=== PATIENT | female | born 1995 | race Caucasian/White ===

== ENCOUNTER 2019-02-10 11:25 | Emergency (ER) | payer MEDICARE, OTHER ==
--- NOTE | 2019-02-10 14:21 | US ---
EXAMINATION TYPE: Transabdominal DATE OF EXAM: 02/10/2019 1:39 PM COMPARISON: NONE CLINICAL HISTORY: pain. cramping with EXAM PERFORMED: Transabdominal (TA) EXAM MEASUREMENTS: GESTATIONAL AGE / DATING Physician Established: Not yet established Dates by LMP: LMP unknown Dates by First Scan: No previous this is first scan Dates by Current Scan for: No heart tones (10 weeks/1 days) MATERNAL ANATOMY Uterus: 12.4 x 6.5 x 8.3 cm Right Ovary: 2.6 x 2.0 x 3.0 cm Left Ovary: 2.3 x 1.9 x 1.9 cm Post CDS / Adnexa: wnl Presence of free fluid: none GESTATION / SURVEY CRL: 3.2 cm (10 weeks/1 days) Yolk Sac (normal less than 6mm): 0.3 cm Heart Rate: not detected IUP: Demise Date of LMP: unknown Beta HcG (if available): not available demise. IMPRESSION: Sonographic findings are diagnostic of demise in evaluation with M mode and color Doppler.
--- NOTE | 2019-02-10 14:27 | ED ---
Abdominal Pain HPI <Yariel Alva - Last Filed: 02/10/19 15:50> - General Source: patient, RN notes reviewed, old records reviewed Mode of arrival: ambulatory Limitations: no limitations <Chelle Mccormick - Last Filed: 02/10/19 16:01> - General Chief Complaint: Abdominal Pain Stated Complaint: approx 10wks preg, cramping Time Seen by Provider: 02/10/19 13:23 - History of Present Illness Initial Comments: Patient is a 23-year-old female who presents emergency department today with right-sided abdominal pain and cramping. She states she's also had some left- sided upper abdominal pain. She reports that her symptoms started over the past few days. Patient states she has not seen an [facility]. Patient states that she believes she is approximately 10 weeks . She's attempted to follow-up with multiple [facility]'s but has been answering calls accepting her insurance. This is patient's first .Has history of thyroid disorder. (Chelle Mccormick) - Related Data Home Medications Medication Instructions Recorded Confirmed Levothyroxine Sodium [Synthroid] 88 mcg PO DAILY 08/16/15 02/10/19 Allergies Allergy/AdvReac Type Severity Reaction Status Date / Time latex Allergy Unknown Verified 02/10/19 13:33 Review of Systems ROS Other: All systems not noted in ROS Statement are negative. <Yariel Alva - Last Filed: 02/10/19 15:50> ROS Other: All systems not noted in ROS Statement are negative. <Chelle Mccormick - Last Filed: 02/10/19 16:01> ROS Statement: Those systems with pertinent positive or pertinent negative responses have been documented in the HPI. Past Medical History Past Medical History: Thyroid Disorder History of Any Multi-Drug Resistant Organisms: MRSA Date of last positivie culture/infection: 2005 MDRO Source:: LEG Past Surgical History: No Surgical Hx Reported Past Psychological History: ADD/ADHD, Depression Smoking Status: Current every day smoker Past Alcohol Use History: Occasional Past Drug Use History: Methamphetamine <Chelle Mccormick - Last Filed: 02/10/19 16:01> General Exam Limitations: no limitations General appearance: alert, in no apparent distress Head exam: Present: atraumatic, normocephalic, normal inspection Eye exam: Present: normal appearance, PERRL, EOMI. Absent: scleral icterus, conjunctival injection, periorbital swelling ENT exam: Present: normal exam, mucous membranes moist Neck exam: Present: normal inspection. Absent: tenderness, meningismus, lymphadenopathy Respiratory exam: Present: normal lung sounds bilaterally. Absent: respiratory distress, wheezes, rales, rhonchi, stridor Cardiovascular Exam: Present: regular rate, normal rhythm, normal heart sounds. Absent: systolic murmur, diastolic murmur, rubs, gallop, clicks GI/Abdominal exam: Present: soft, tenderness (Right lower quadrant pain), normal bowel sounds. Absent: distended, guarding, rebound, rigid Extremities exam: Present: normal inspection, full ROM, normal capillary refill. Absent: tenderness, pedal edema, joint swelling, calf tenderness Back exam: Present: normal inspection Neurological exam: Present: alert, oriented X3, CN II-XII intact Psychiatric exam: Present: normal affect, normal mood Skin exam: Present: warm, dry, intact, normal color. Absent: rash <Chelle Mccormick - Last Filed: 02/10/19 16:01> - General Exam Comments Initial Comments: This is a 23-year-old female. Alert and oriented 3. Patient appears in no acute distress. (Chelle Mccormick) Course <Yariel Alva - Last Filed: 02/10/19 15:50> Vital Signs 02/10/19 02/10/19 11:28 15:00 Temperature 98.5 F 98.6 F Pulse Rate 90 79 Respiratory 18 16 Rate Blood Pressure 116/68 100/84 O2 Sat by Pulse 99 100 Oximetry - Reevaluation(s) Reevaluation #1: 02/10/19 15:50 Patient reevaluated by myself, Dr. Alva. Patient resting comfortably in bed. Abdomen soft and nontender, including pelvis region. Patient is aware of result s. Case was discussed with Dr. Sales, covering for hospital call, who is okay with discharge and will follow up with patient. Patient is updated. (Yariel Alva) Medical Decision Making - Lab Data Result diagrams: 02/10/19 14:40 02/10/19 14:40 <Yariel Alva - Last Filed: 02/10/19 15:50> - Lab Data Result diagrams: 02/10/19 14:40 02/10/19 14:40 - Radiology Data Radiology results: report reviewed <AnnyChelle - Last Filed: 02/10/19 16:01> - Medical Decision Making Patient is a 23-year-old female presents emergency room today with right-sided abdominal pain cramping. She wishes 10 weeks . Ultrasound shows evidence of intrauterine measuring 10 weeks but no heart tones. Concern for demise. Patient is a 23-year-old female just returned today with complaints of lower abdominal pain and . Patient states is approximately 10 weeks . . At this time patient's ultrasound was completed and shows a IUP measuring 10 weeks with no heart tones. Concern for demise. Pelvic exam was completed. No bleeding noted. She had no adnexal tenderness. Patient's AB- blood type. Patient was given IM RhoGAM. Dr. Alva discussed the case with Dr. Armando recommends following up with them out patiently. We'll repeat hCG levels. I discussed strict return parameters with Patient. (Chelle Mccormick) - Lab Data Lab Results 02/10/19 02/10/19 02/10/19 Range/Units 14:40 14:40 14:40 WBC 14.3 H (3.8-10.6) k/uL RBC 4.05 (3.80-5.40) m/uL Hgb 13.8 (11.4-16.0) gm/dL Hct 41.5 (34.0-46.0) % MCV 102.3 H (80.0-100.0) fL MCH 34.1 (25.0-35.0) pg MCHC 33.3 (31.0-37.0) g/dL RDW 13.5 (11.5-15.5) % Plt Count 267 (150-450) k/uL Neutrophils % 70 % Lymphocytes % 22 % Monocytes % 4 % Eosinophils % 3 % Basophils % 1 % Neutrophils # 10.0 H (1.3-7.7) k/uL Lymphocytes # 3.1 (1.0-4.8) k/uL Monocytes # 0.6 (0-1.0) k/uL Eosinophils # 0.4 (0-0.7) k/uL Basophils # 0.1 (0-0.2) k/uL Macrocytosis Slight PT (9.0-12.0) sec INR (<1.2) APTT (22.0-30.0) sec Sodium 138 (137-145) mmol/L Potassium 4.0 (3.5-5.1) mmol/L Chloride 105 (98-107) mmol/L Carbon Dioxide 24 (22-30) mmol/L Anion Gap 9 mmol/L BUN 11 (7-17) mg/dL Creatinine 0.41 L (0.52-1.04) mg/dL Est GFR (CKD-EPI)AfAm >90 (>60 ml/min/1.73 sqM) Est GFR (CKD-EPI)NonAf >90 (>60 ml/min/1.73 sqM) Glucose 71 L (74-99) mg/dL Calcium 9.1 (8.4-10.2) mg/dL Total Bilirubin 0.4 (0.2-1.3) mg/dL AST 27 (14-36) U/L ALT 15 (9-52) U/L Alkaline Phosphatase 40 (38-126) U/L Total Protein 7.2 (6.3-8.2) g/dL Albumin 4.2 (3.5-5.0) g/dL Urine Color Urine Appearance (Clear) Urine pH (5.0-8.0) Ur Specific Nixon (1.001-1.035) Urine Protein (Negative) Urine Glucose (UA) (Negative) Urine Ketones (Negative) Urine Blood (Negative) Urine Nitrite (Negative) Urine Bilirubin (Negative) Urine Urobilinogen (<2.0) mg/dL Ur Leukocyte Esterase (Negative) Ur Squamous Epith Cells (0-4) /hpf Urine Bacteria (None) /hpf Urine Mucus (None) /hpf Urine HCG, Qual (Not Detectd) Blood Type AB Negative Blood Type Recheck CABO Indicated 02/10/19 02/10/19 02/10/19 Range/Units 14:40 14:40 14:40 WBC (3.8-10.6) k/uL RBC (3.80-5.40) m/uL Hgb (11.4-16.0) gm/dL Hct (34.0-46.0) % MCV (80.0-100.0) fL MCH (25.0-35.0) pg MCHC (31.0-37.0) g/dL RDW (11.5-15.5) % Plt Count (150-450) k/uL Neutrophils % % Lymphocytes % % Monocytes % % Eosinophils % % Basophils % % Neutrophils # (1.3-7.7) k/uL Lymphocytes # (1.0-4.8) k/uL Monocytes # (0-1.0) k/uL Eosinophils # (0-0.7) k/uL Basophils # (0-0.2) k/uL Macrocytosis PT 12.2 H (9.0-12.0) sec INR 1.2 H (<1.2) APTT 24.7 (22.0-30.0) sec Sodium (137-145) mmol/L Potassium (3.5-5.1) mmol/L Chloride (98-107) mmol/L Carbon Dioxide (22-30) mmol/L Anion Gap mmol/L BUN (7-17) mg/dL Creatinine (0.52-1.04) mg/dL Est GFR (CKD-EPI)AfAm (>60 ml/min/1.73 sqM) Est GFR (CKD-EPI)NonAf (>60 ml/min/1.73 sqM) Glucose (74-99) mg/dL Calcium (8.4-10.2) mg/dL Total Bilirubin (0.2-1.3) mg/dL AST (14-36) U/L ALT (9-52) U/L Alkaline Phosphatase (38-126) U/L Total Protein (6.3-8.2) g/dL Albumin (3.5-5.0) g/dL Urine Color Yellow Urine Appearance Cloudy H (Clear) Urine pH 6.5 (5.0-8.0) Ur Specific Nixon 1.027 (1.001-1.035) Urine Protein Trace H (Negative) Urine Glucose (UA) Negative (Negative) Urine Ketones Negative (Negative) Urine Blood Negative (Negative) Urine Nitrite Negative (Negative) Urine Bilirubin Negative (Negative) Urine Urobilinogen <2.0 (<2.0) mg/dL Ur Leukocyte Esterase Negative (Negative) Ur Squamous Epith Cells 23 H (0-4) /hpf Urine Bacteria Occasional H (None) /hpf Urine Mucus Many H (None) /hpf Urine HCG, Qual Detected (Not Detectd) Blood Type Blood Type Recheck - Radiology Data Ultrasound shows evidence of demise and evaluation with a bloating color Doppler. Ultrasound shows no heart tones but measuring 10 week and 1 day. (Chelle Mccormick) Disposition <Yariel Alva - Last Filed: 02/10/19 15:50> Is patient prescribed a controlled substance at d/c from ED?: No Time of Disposition: 16:01 <Chelle Mccormick - Last Filed: 02/10/19 16:01> Clinical Impression: demise, 10 weeks gestation of Disposition: HOME SELF-CARE Condition: Good Instructions (If sedation given, give patient instructions): Miscarriage (ED) Additional Instructions: Patient has have prompt follow-up with Dr. Armando or Dr. Smalls within the next 1-2 days. Patient should return to the emergency department if any alarming signs or symptoms occur. Referrals: Oswaldo Liu DO [Primary Care Provider] - 1-2 days
[2019-02-10 14:56] LABS: Basophils # (A) 0.1 k/uL (0-0.2); Basophils % (A) 1 %; Eosinophils # (A) 0.4 k/uL (0-0.7); Eosinophils % (A) 3 %; HCT 41.5 % (34.0-46.0); HGB 13.8 gm/dL (11.4-16.0); Lymphocytes # (A) 3.1 k/uL (1.0-4.8); Lymphocytes % (A) 22 %; MCH 34.1 pg (25.0-35.0); MCHC 33.3 g/dL (31.0-37.0); MCV 102.3 fL (80.0-100.0); Macrocytosis Slight; Mean Platelet Volume 7.5; Monocytes # (A) 0.6 k/uL (0-1.0); Monocytes % (A) 4 %; Neutrophils % (A) 70 %; Platelet Count 267 k/uL (150-450); RBC 4.05 m/uL (3.80-5.40); RDW 13.5 % (11.5-15.5); WBC 14.3 k/uL (3.8-10.6)
[2019-02-10 15:03] LABS: ALT 15 U/L (9-52); AST 27 U/L (14-36); Albumin 4.2 g/dL (3.5-5.0); Alkaline Phosphatase 40 U/L (38-126); Anion Gap 9 mmol/L; Blood Urea Nitrogen 11 mg/dL (7-17); Calcium 9.1 mg/dL (8.4-10.2); Carbon Dioxide 24 mmol/L (22-30); Chloride 105 mmol/L (98-107); Glucose 71 mg/dL (74-99); Sodium 138 mmol/L (137-145); Total Bilirubin 0.4 mg/dL (0.2-1.3); Total Protein 7.2 g/dL (6.3-8.2)
[2019-02-10 15:11] VITALS: TEMP 98.6
[2019-02-10] MEDS ORDERED: Rhogam IMMUNE GLOBULIN 1,500 UNIT/1 ML IM ONE (15:29)
[2019-02-10 15:34] LABS: INR 1.2 (<1.2); Partial Thromboplastin Time 24.7 sec (22.0-30.0); Prothrombin Time 12.2 sec (9.0-12.0)
[2019-02-10 15:41] LABS: Appearance,Urine Cloudy (Clear); Bacteria,Urine Occasional /hpf; Bilirubin,Urine Negative (Negative); Blood,Urine Negative (Negative); Color,Urine Yellow; Glucose,Urine (UA) Negative (Negative); Ketones,Urine Negative (Negative); Leukocyte Esterase,Urine Negative (Negative); Mucus,Urine Many /hpf; Nitrite,Urine Negative (Negative); PH, Urine 6.5 (5.0-8.0); Protein,Urine Trace (Negative); Specific Gravity,Urine 1.027 (1.001-1.035); Squamous Epithelial Cell,Urine 23 /hpf (0-4); Urobilinogen,Urine <2.0 mg/dL (<2.0)
[2019-02-10 17:32] VITALS: BP 98/67; PULSE 72; RESP 18
== END 2019-02-10 17:40 | disposition home or self-care (01) ==
LOC: EC 11:25
DX: O02.1 Missed abortion (principal); O99.281 Endocrine, nutritional and metabolic diseases complicating pregnancy, first trimester; E07.9 Disorder of thyroid, unspecified; O99.331 Smoking (tobacco) complicating pregnancy, first trimester; F17.200 Nicotine dependence, unspecified, uncomplicated; Z79.890 Hormone replacement therapy; Z91.040 Latex allergy status; Z86.14 Personal history of Methicillin resistant Staphylococcus aureus infection; Z3A.10 10 weeks gestation of pregnancy
CPT/HCPCS: 36415; 86900; 86901; 80053; 85025; 85610; 85730; 86850; 81001; 81025; 84702; 87808; 87070; 87086; 87205; 76801; 99284; 96372; J2791

== ENCOUNTER → 2019-02-14 | Day surgery (SDC) | payer MEDICARE ==
[2019-02-13 13:11] VITALS: BMI 21.4
--- NOTE | 2019-02-13 16:23 | P.HPOB ---
History of Present Illness H&P Date: 02/13/19 Chief Complaint: missed 23 year old presents with 10 week demise for suction D&C. She had an US earlier this week confirming. She has AB neg blood type but did get Rhogam in the ER this week. Review of Systems All systems: negative Constitutional: Denies chills, Denies fever Eyes: denies blurred vision, denies pain Ears, nose, mouth and throat: Denies headache, Denies sore throat Cardiovascular: Denies chest pain, Denies shortness of breath Respiratory: Denies cough Gastrointestinal: Denies abdominal pain, Denies diarrhea, Denies nausea, Denies vomiting Genitourinary: Denies dysuria, Denies hematuria Musculoskeletal: Denies myalgias Integumentary: Denies pruritus, Denies rash Neurological: Denies numbness, Denies weakness Psychiatric: Denies anxiety, Denies depression Endocrine: Denies fatigue, Denies weight change Past Medical History Past Medical History: Asthma, Eye Disorder, Musculoskeletal Disorder (Radu hereditary osteodystrophy), Thyroid Disorder Additional Past Medical History / Comment(s): LEGALLY BLIND LT EYE. BACK PROB. MISSED AB CURRENTLY. IRREG MENSES. History of Any Multi-Drug Resistant Organisms: MRSA Date of last positivie culture/infection: 2005 MDRO Source:: LEG Past Surgical History: No Surgical Hx Reported Past Anesthesia/Blood Transfusion Reactions: No Reported Reaction Smoking Status: Current every day smoker - Past Family History Father Family Medical History: Cancer Medications and Allergies Home Medications Medication Instructions Recorded Confirmed Type Levothyroxine Sodium [Synthroid] 88 mcg PO DAILY 08/16/15 02/13/19 History Albuterol Inhaler [Ventolin Hfa 1 - 2 puff INHALATION RT-Q6H PRN 02/13/19 02/13/19 History Inhaler] Allergies Allergy/AdvReac Type Severity Reaction Status Date / Time latex Allergy Swelling Verified 02/13/19 13:01 Exam Osteopathic Statement: *. No significant issues noted on an osteopathic structural exam other than those noted in the History and Physical/Consult. Intake and Output 02/13/19 02/13/19 02/13/19 06:59 14:59 22:59 Other: Weight 40.37 kg Heart: RRR Lungs: CTAB Abdomen: soft, nontender Extremeties: neg saravanan's Assessment and Plan (1) Missed Status: Acute Code(s): O02.1 - MISSED SNOMED Code(s): 62731919 Plan: 1. suction D&C. I discussed with patient and she would like the tissue sent for chromosome analysis.
[~2019-02-14] MED LIST: DEXAMETHASONE SOD PHOSPHATE 10 MG/ML 1 ML VIAL IV ONE; HYDROmorphone 0.5 MG/0.5 ML SYRINGE IVP PRN; LACTATED RINGERS 1,000 ML IV SCH; LIDOCAINE 1% 20 ML VIAL (10MG/ML) FOR IV START INTRADERMA PRN; LIDOCAINE 1% INJ 10MG/ML (20 ML MDV) ONE; MIDAZOLAM 2 MG/2 ML VIAL ONE; ONDANSETRON 4 MG/2 ML VIAL IVP ONE; PROPOFOL 10 MG/ML 20 ML VIAL IV ONE; Pre Op ABX Message 1 EACH MISC MISCELLANE ONE; SCOPOLAMINE 1.5MG/72HR PATCH TRANSDERM ONE; fentaNYL (PF) 50 MCG/ML 2 ML AMP ONE
--- NOTE | 2019-02-14 08:37 | P.OP ---
Date of Procedure: 02/14/19 Preoperative Diagnosis: 1. missed Postoperative Diagnosis: 1. missed Procedure(s) Performed: Suction D&C Anesthesia: MAC Surgeon: Yohana Smalls Estimated Blood Loss (ml): 500 IV fluids (ml): 400 Urine output (ml): 10 Pathology: other (Products of conception) Condition: stable Disposition: PACU Description of Procedure: Patient is taken the operating room where general anesthesia was obtained without difficulty. She is prepped and draped in normal sterile fashion dorsal lithotomy position, legs placed in the candycane stirrups. Bladder was drained of all urine. Weighted speculum place in vagina the anterior lip the cervix was grasped with single-tooth tenaculum. The cervix was dilated to #10 Hegar dilator. The #10 curved suction curet was introduced into the uterus and hooked up to suction. This was passed several times to obtain tissue and blood. Sharp curet was gently used to ensure all tissue had been removed and then the suction curet was passed a few more times. Hemostasis was achieved. All instruments removed from the vagina. Patient to our procedure well, sponge and instrument counts are correct 2 and she was taken to recovery room in stable condition.
[2019-02-14 08:39] VITALS: TEMP 97.1
[2019-02-14 08:56] VITALS: RESP 16
[2019-02-14 09:21] VITALS: PULSE 57
[2019-02-14 09:24] VITALS: BP 99/65
== END | disposition home or self-care (01) ==
LOC: OR 06:13
PROVIDERS: ATTEND Obstetrics & Gynecology
DX: O02.1 Missed abortion (principal); Z3A.10 10 weeks gestation of pregnancy; J45.909 Unspecified asthma, uncomplicated; Q78.8 Other specified osteochondrodysplasias; E07.9 Disorder of thyroid, unspecified; F17.210 Nicotine dependence, cigarettes, uncomplicated; Z79.890 Hormone replacement therapy; Z91.040 Latex allergy status
CPT/HCPCS: 88305; 59820; J2250; J1100; J2405; J2001; J3010; J2704

== ENCOUNTER 2020-10-02 11:11 | Emergency (ER) | payer MEDICARE ==
[2020-10-02 11:18] VITALS: BP 129/88; PULSE 85; RESP 18; TEMP 98
--- NOTE | 2020-10-02 11:34 | ED ---
General Adult HPI - General Chief complaint: Skin/Abscess/Foreign Body Stated complaint: skin problem/leg Time Seen by Provider: 10/02/20 11:20 Source: patient, RN notes reviewed, old records reviewed Mode of arrival: ambulatory Limitations: no limitations - History of Present Illness Initial comments: Patient's that 25-year-old female presents with a skin irritation on her inner right thigh. Patient reports that she's noticed it yesterday as a small blister which sounds popped. She denies any pus from the site. Patient states that said history of MRSA infections in the past. Patient reports no fevers or chills or other complaints. - Related Data Home Medications Medication Instructions Recorded Confirmed Levothyroxine Sodium [Synthroid] 88 mcg PO DAILY 08/16/15 02/14/19 Albuterol Inhaler (Mhu) [Ventolin 1 - 2 puff INHALATION RT-Q6H PRN 02/13/19 02/14/19 Hfa Inhaler] Previous Rx's Medication Instructions Recorded Ibuprofen [Motrin] 600 mg PO Q6HR PRN #30 tab 02/14/19 Mupirocin 2% Oint [Bactroban 2% 1 applic TOPICAL TID #60 gm 10/02/20 Oint] Sulfamethox-Tmp 800-160Mg [Bactrim 1 tab PO Q12HR #14 tab 10/02/20 DS 800-160 mg] Allergies Allergy/AdvReac Type Severity Reaction Status Date / Time latex Allergy Swelling Verified 10/02/20 11:18 Review of Systems ROS Statement: Those systems with pertinent positive or pertinent negative responses have been documented in the HPI. ROS Other: All systems not noted in ROS Statement are negative. Past Medical History Past Medical History: Asthma, Eye Disorder, Musculoskeletal Disorder, Thyroid Disorder Additional Past Medical History / Comment(s): LEGALLY BLIND LT EYE. BACK PROB. MISSED AB CURRENTLY. IRREG MENSES. History of Any Multi-Drug Resistant Organisms: MRSA Date of last positivie culture/infection: 2005 MDRO Source:: LEG Past Surgical History: No Surgical Hx Reported Past Anesthesia/Blood Transfusion Reactions: No Reported Reaction Past Psychological History: ADD/ADHD, Anxiety, Depression Smoking Status: Current every day smoker Past Alcohol Use History: Rare Past Drug Use History: Methamphetamine - Past Family History Father Family Medical History: Cancer General Exam - General Exam Comments Initial Comments: 25-year-old female. Alert and oriented 3. Limitations: no limitations General appearance: in no apparent distress Head exam: Present: atraumatic, normocephalic, normal inspection Eye exam: Present: normal appearance, PERRL, EOMI. Absent: scleral icterus, conjunctival injection, periorbital swelling ENT exam: Present: normal exam, mucous membranes moist Neck exam: Present: normal inspection. Absent: tenderness, meningismus, lymphadenopathy Respiratory exam: Present: normal lung sounds bilaterally. Absent: respiratory distress, wheezes, rales, rhonchi, stridor Cardiovascular Exam: Present: regular rate, normal rhythm, normal heart sounds. Absent: systolic murmur, diastolic murmur, rubs, gallop, clicks GI/Abdominal exam: Present: soft, normal bowel sounds. Absent: distended, tenderness, guarding, rebound, rigid Extremities exam: Present: normal inspection, full ROM, normal capillary refill, other (Shows a small erythematous posterior over the right inner thigh likely from her underwear is rubbing and chafing. No pus.). Absent: tenderness, pedal edema, joint swelling, calf tenderness Back exam: Present: normal inspection Neurological exam: Present: alert, oriented X3, CN II-XII intact Psychiatric exam: Present: normal affect, normal mood Course Vital Signs 10/02/20 11:14 Temperature 98 F Pulse Rate 85 Respiratory 18 Rate Blood Pressure 129/88 O2 Sat by Pulse 100 Oximetry Medical Decision Making - Medical Decision Making Patient is a 25-year-old female who presents emergency department today for evaluation with chief complaint of right by chafing abscess. The area is not abscess and it's a blister that sloughed off. Small amount of erythema around the site. Patient started on Bactrim she reports a history of MRSA. Culture obtained there is nothing to incise and drain at this time. Discussed following up with primary care doctor. Disposition Clinical Impression: Benign skin lesion of thigh Disposition: HOME SELF-CARE Condition: Good Instructions (If sedation given, give patient instructions): Abscess (ED) Additional Instructions: Patient's area of erythema is likely from chafing rubbing. Patient should keep the area clean and dry with dry dressings over this. He is a thin amount of ointment over the site. Patient can return to emergency department if any alarming signs or symptoms occur. Prescriptions: Sulfamethox-Tmp 800-160Mg [Bactrim DS 800-160 mg] 1 tab PO Q12HR #14 tab Mupirocin 2% Oint [Bactroban 2% Oint] 1 applic TOPICAL TID #60 gm Is patient prescribed a controlled substance at d/c from ED?: No Referrals: None,Stated [Primary Care Provider] - 1-2 days Time of Disposition: 11:38
== END 2020-10-02 12:22 | disposition home or self-care (01) ==
LOC: EC 11:11
DX: S70.321A Blister (nonthermal), right thigh, initial encounter (principal); J45.909 Unspecified asthma, uncomplicated; E07.9 Disorder of thyroid, unspecified; H54.8 Legal blindness, as defined in USA; F17.200 Nicotine dependence, unspecified, uncomplicated; Z79.890 Hormone replacement therapy; Z91.040 Latex allergy status; Z86.14 Personal history of Methicillin resistant Staphylococcus aureus infection; X58.XXXA Exposure to other specified factors, initial encounter
CPT/HCPCS: 87070; 87077; 87186; 87205; 99284

== ENCOUNTER 2021-12-04 21:15 | Emergency (ER) | payer MEDICARE ==
[2021-12-04 22:28] VITALS: BP 126/80; PULSE 108; RESP 20; TEMP 98.8
--- NOTE | 2021-12-04 23:02 | CT ---
EXAMINATION TYPE: CT sinus wo con DATE OF EXAM: 12/04/2021 COMPARISON: HISTORY: sinus pressure and dranage from right side CT DLP: 293.6 mGycm Automated exposure control for dose reduction was used. Images obtained from the top of the frontal sinuses to the mid mandible with no contrast. There is opacification right maxillary sinus with extension into the nasopharynx. There is significan t opacification of the right-sided ethmoid air cells. The orbital margins are intact. There is no enoch dence of retro-orbital mass. There is mucosal thickening extending into the right frontal sinus. The left maxillary sinus appears normal with normal appearance of the ostiomeatal complex. The maxilla is intact. The sphenoid sinus appears normal. There is normal aeration of the mastoid sinuses. There is normal aeration of the appendectomy 10 tymp anic recess bilaterally. Temporomandibular joints are intact. IMPRESSION: There is extensive opacification of the right-sided maxillary ethmoid and frontal sinus more likely r elated to sinusitis. No convincing evidence of bone destruction.
[2021-12-04] MEDS ORDERED: AMOXIC-POT CLAV 875MG STARTER PACK 2 TAB BTL PO STA (23:04)
--- NOTE | 2021-12-04 23:08 | ED ---
ENT HPI - General Chief complaint: ENT Stated complaint: irregular nasal drainage,lump on forehead Time Seen by Provider: 12/04/21 22:27 Source: patient Mode of arrival: ambulatory - History of Present Illness Initial comments: 26-year-old female patient presents to the emergency department today for evaluation of sinus pain and purulent nasal discharge. States it looks like pus was coming out of her nose. States she had a lump to the right forehead over the right eye. States his been going on for the last several weeks. States that seems like it is getting worse. She denies any cough or congestion. Denies any recent fever or chills. States she does have right-sided nasal congestion. Denies any history of sinus surgery. Denies chance of . - Related Data Home Medications Medication Instructions Recorded Confirmed Levothyroxine Sodium [Synthroid] 88 mcg PO DAILY 08/16/15 02/14/19 Albuterol Inhaler (Mhu) [Ventolin 1 - 2 puff INHALATION RT-Q6H PRN 02/13/19 02/14/19 Hfa Inhaler] Previous Rx's Medication Instructions Recorded Ibuprofen [Motrin] 600 mg PO Q6HR PRN #30 tab 02/14/19 Mupirocin 2% Oint [Bactroban 2% 1 applic TOPICAL TID #60 gm 10/02/20 Oint] Sulfamethox-Tmp 800-160Mg [Bactrim 1 tab PO Q12HR #14 tab 10/02/20 DS 800-160 mg] Mupirocin [Mupirocin 2%] 1 applic TOPICAL BID #30 gm 10/04/20 Sulfamethox-Tmp 800-160Mg [Bactrim 1 tab PO Q12HR #14 tab 10/04/20 DS 800-160 mg] Amoxic-Pot Clav 875-125Mg 1 tab PO Q12HR #20 tablet 12/04/21 [Augmentin 875-125] Fluticasone Nasal [place] [Flonase 2 spr EA NOSTRIL DAILY #16 gm 12/04/21 Nasal [place]] Allergies Allergy/AdvReac Type Severity Reaction Status Date / Time latex Allergy Swelling Verified 12/04/21 22:22 Review of Systems ROS Statement: Those systems with pertinent positive or pertinent negative responses have been documented in the HPI. ROS Other: All systems not noted in ROS Statement are negative. Past Medical History Past Medical History: Asthma, Eye Disorder, Musculoskeletal Disorder, Thyroid Disorder Additional Past Medical History / Comment(s): LEGALLY BLIND LT EYE. BACK PROB. MISSED AB CURRENTLY. IRREG MENSES. History of Any Multi-Drug Resistant Organisms: MRSA Date of last positivie culture/infection: 2005 MDRO Source:: LEG Past Surgical History: No Surgical Hx Reported Past Anesthesia/Blood Transfusion Reactions: No Reported Reaction Past Psychological History: ADD/ADHD, Anxiety, Depression Smoking Status: Current every day smoker Past Alcohol Use History: Rare Past Drug Use History: Methamphetamine - Past Family History Father Family Medical History: Cancer General Exam General appearance: alert, in no apparent distress, other (This is a well- developed, well-nourished adult female in no acute distress.) ENT exam: Present: normal oropharynx, mucous membranes moist, other (Right frontal sinus tenderness) Respiratory exam: Present: normal lung sounds bilaterally. Absent: respiratory distress, wheezes, rales, rhonchi, stridor Cardiovascular Exam: Present: regular rate, normal rhythm, normal heart sounds. Absent: systolic murmur, diastolic murmur, rubs, gallop, clicks Neurological exam: Present: alert, oriented X3, CN II-XII intact Psychiatric exam: Present: normal affect, normal mood Skin exam: Present: warm, dry, intact, normal color. Absent: rash Course Vital Signs 12/04/21 22:22 Temperature 98.8 F Pulse Rate 108 H Respiratory 20 Rate Blood Pressure 126/80 O2 Sat by Pulse 99 Oximetry Medical Decision Making - Medical Decision Making 26-year-old female patient is presenting to the emergency department today for evaluation of purulence sinus drainage and swelling over the right frontal sinus region. Physical examination did reveal right frontal sinus tenderness. Nasal drainage was purulent and green. CT sinuses was performed and showed complete opacification of the right frontal sinus and right maxillary sinus extending into the nasopharynx. Patient was started on Augmentin for sinusitis. Given prescription for Flonase. She is instructed to follow-up with ENT if her symptoms are not improved after 2 weeks. Return parameters were discussed in detail. She verbalizes understanding and agrees with this plan. My attending is Dr. Herr. - Radiology Data Radiology results: report reviewed, image reviewed CT sinuses without contrast are obtained. Report was reviewed in its entirety. Impression by Dr. Mccoy shows extensive opacification right-sided maxillary ethmoid and frontal sinus more likely related to sinusitis. No convincing evidence of bone destruction. Disposition Clinical Impression: Sinusitis Disposition: HOME SELF-CARE Condition: Good Instructions (If sedation given, give patient instructions): Sinusitis (ED) Additional Instructions: Complete antibiotic prescription in full, your infection will return if you do not complete the antibiotic. Follow up with primary care physician or ENT specialist if your symptoms are not improved over the next 14 days. Return to the emergency department for any new, worsening, or concerning symptoms. Prescriptions: Amoxic-Pot Clav 875-125Mg [Augmentin 875-125] 1 tab PO Q12HR #20 tablet Fluticasone Nasal [place] [Flonase Nasal Ryan] 2 spr EA NOSTRIL DAILY #16 gm Is patient prescribed a controlled substance at d/c from ED?: No Referrals: Reinier Carolina MD [STAFF PHYSICIAN] - 1-2 days Time of Disposition: 23:07
== END 2021-12-04 23:15 | disposition home or self-care (01) ==
LOC: EC 21:15
DX: J01.90 Acute sinusitis, unspecified (principal); J45.909 Unspecified asthma, uncomplicated; E07.9 Disorder of thyroid, unspecified; F90.9 Attention-deficit hyperactivity disorder, unspecified type; F41.9 Anxiety disorder, unspecified; F32.A Depression, unspecified; F17.200 Nicotine dependence, unspecified, uncomplicated; Z91.040 Latex allergy status
CPT/HCPCS: 70486; 99283

== ENCOUNTER 2023-09-09 17:46 | Emergency (ER) | payer MEDICARE ==
[2023-09-09 18:00] VITALS: RESP 18
[2023-09-09] MEDS ORDERED: AMOXIC-POT CLAV 875-125MG 1 EACH TAB PO STA (18:17)
[2023-09-09] MEDS ORDERED: IBUPROFEN 600 MG TAB PO STA (18:20)
[2023-09-09] MEDS ORDERED: AMOXIC-POT CLAV 875MG STARTER PACK 2 TAB BTL PO STA (18:20)
--- NOTE | 2023-09-09 18:20 | ED ---
Headache HPI - General Chief Complaint: Headache Stated Complaint: facial pain Time Seen by Provider: 09/09/23 18:02 Mode of arrival: ambulatory Limitations: no limitations - History of Present Illness Initial Comments: 27-year-old female presenting with chief complaint of sinus pressure. Patient states that she has had a pressure-like pain over her face for about a week. She admits to copious nasal discharge. Pain worsens with leaning forward. No fevers or chills. Denies cough or sore throat. No nausea, vomiting, abdominal pain, chest pain, difficulty breathing. - Related Data Home Medications Medication Instructions Recorded Confirmed Levothyroxine Sodium [Synthroid] 88 mcg PO DAILY 08/16/15 02/14/19 Albuterol Inhaler [Ventolin Hfa 1 - 2 puff INHALATION RT-Q6H PRN 02/13/19 02/14/19 Inhaler] Previous Rx's Medication Instructions Recorded Ibuprofen [Motrin] 600 mg PO Q6HR PRN #30 tab 02/14/19 Mupirocin 2% Oint [Bactroban 2% 1 applic TOPICAL TID #60 gm 10/02/20 Oint] Sulfamethox-Tmp 800-160Mg [Bactrim 1 tab PO Q12HR #14 tab 10/02/20 DS 800-160 mg] Mupirocin [Mupirocin 2%] 1 applic TOPICAL BID #30 gm 10/04/20 Sulfamethox-Tmp 800-160Mg [Bactrim 1 tab PO Q12HR #14 tab 10/04/20 DS 800-160 mg] Amoxic-Pot Clav 875-125Mg 1 tab PO Q12HR #20 tablet 12/04/21 [Augmentin 875-125] Fluticasone Nasal [place] [Flonase 2 spr EA NOSTRIL DAILY #16 gm 12/04/21 Nasal [place]] Amoxicillin 500 mg PO BID #20 capsule 01/22/23 Benzocaine/Menthol Lozeng [Cepacol 1 each MUCOUS MEM Q4HR #30 lozenge 01/22/23 lozenge] Amoxic-Pot Clav 875-125Mg 1 tab PO Q12HR 7 Days #14 tab 09/09/23 [Augmentin 875-125] Allergies Allergy/AdvReac Type Severity Reaction Status Date / Time latex Allergy Swelling Verified 09/09/23 17:59 Review of Systems ROS Statement: Those systems with pertinent positive or pertinent negative responses have been documented in the HPI. ROS Other: All systems not noted in ROS Statement are negative. Past Medical History Past Medical History: Asthma, Eye Disorder, Musculoskeletal Disorder, Thyroid Disorder Additional Past Medical History / Comment(s): LEGALLY BLIND LT EYE. BACK PROB. MISSED AB CURRENTLY. IRREG MENSES. History of Any Multi-Drug Resistant Organisms: MRSA Date of last positivie culture/infection: 2005 MDRO Source:: LEG Past Surgical History: No Surgical Hx Reported Past Anesthesia/Blood Transfusion Reactions: No Reported Reaction Past Psychological History: ADD/ADHD, Anxiety, Depression Smoking Status: Current every day smoker Past Alcohol Use History: Rare Past Drug Use History: Methamphetamine - Past Family History Father Family Medical History: Cancer General Exam Limitations: no limitations General appearance: alert, in no apparent distress Head exam: Present: atraumatic, normocephalic, normal inspection Eye exam: Present: normal appearance, EOMI ENT exam: Present: normal oropharynx, mucous membranes moist, TM's normal bilaterally, other (Increased sinus pressure on palpation) Neck exam: Present: normal inspection, full ROM Respiratory exam: Present: normal lung sounds bilaterally. Absent: respiratory distress, wheezes, rales, rhonchi, stridor Cardiovascular Exam: Present: regular rate, normal rhythm, normal heart sounds. Absent: systolic murmur, diastolic murmur, rubs, gallop, clicks Neurological exam: Present: alert, oriented X3 Psychiatric exam: Present: normal affect, normal mood Skin exam: Present: warm, dry, intact, normal color. Absent: rash Course Vital Signs 09/09/23 09/09/23 17:56 18:40 Temperature 99.1 F 98.7 F Pulse Rate 101 H 98 Respiratory 18 18 Rate Blood Pressure 121/82 106/80 O2 Sat by Pulse 99 98 Oximetry Medical Decision Making - Medical Decision Making Was pt. sent in by a medical professional or institution (, PA, SOFTWARE FIRMWARE ENGINEER, urgent care, hospital, or senior care...) When possible be specific @ -No Did you speak to anyone other than the patient for history (EMS, parent, family, police, friend...)? What history was obtained from this source @ -No Did you review nursing and triage notes (agree or disagree)? Why? @ -I reviewed and agree with nursing and triage notes Were old charts reviewed (outside hosp., previous admission, EMS record, old EKG, old radiological studies, urgent care reports/EKG's, senior care records)? Report findings @ -No old charts were reviewed Differential Diagnosis (chest pain, altered mental status, abdominal pain women, abdominal pain men, vaginal bleeding, weakness, fever, dyspnea, syncope, headache, dizziness, GI bleed, back pain, seizure, CVA, palpatations, mental health, musculoskeletal)? @ -MDM Differential Headache: Migraine, tension, cluster, carbon monoxide, central venous thrombosis, pension karma temporal arteritis, acute closure glaucoma, intercranial hemorrhage, mastoiditis, sinusitis, head injury this is not meant to be an all-inclusive list. EKG interpreted by me (3pts min.). @ -As above X-rays interpreted by me (1pt min.). @ -None done CT interpreted by me (1pt min.). @ -None done U/S interpreted by me (1pt. min.). @ -None done What testing was considered but not performed or refused? (CT, X-rays, U/S, labs)? Why? @ -None What meds were considered but not given or refused? Why? @ -None Did you discuss the management of the patient with other professionals (professionals i.e. , PA, SOFTWARE FIRMWARE ENGINEER, lab, RT, psych nurse, older adult social work specialist, welder setter resistance machine, teacher, navigation officer, case worker)? Give summary @ -No Was smoking cessation discussed for >3mins.? @ -No Was critical care preformed (if so, how long)? @ -No Were there social determinants of health that impacted care today? How? (Homelessness, low income, unemployed, alcoholism, drug addiction, transportation, low edu. Level, literacy, decrease access to med. care, skilled nursing, rehab)? @ -No Was there de-escalation of care discussed even if they declined (Discuss DNR or withdrawal of care, Hospice)? DNR status @ -No What co-morbidities impacted this encounter? (DM, HTN, Smoking, COPD, CAD, Cancer, CVA, ARF, Chemo, Hep., AIDS, mental health diagnosis, sleep apnea, morbid obesity)? @ -None Was patient admitted / discharged? Hospital course, mention meds given and route, prescriptions, significant lab abnormalities, going to OR and other pert inent info. @ -27-year-old female presenting with chief complaint of sinus pressure and headache. Ongoing for a week. Admits to copious nasal discharge. On physical examination increased pressure with palpation of the sinuses. Pain increases with leaning forward. Patient will be treated for sinusitis with Augmentin. Educated on today's findings and treatment plan. Follow-up with PCP. Report back to ER with any new or worsening symptoms. Discussed return parameters and answered all questions. Patient conveyed verbal understanding and agreed to the plan. I discussed this case in detail with my attending Dr. Crews Undiagnosed new problem with uncertain prognosis? @ -No Drug Therapy requiring intensive monitoring for toxicity (Heparin, Nitro, Insulin, Cardizem)? @ -No Were any procedures done? @ -No Diagnosis/symptom? @ -Sinusitis Acute, or Chronic, or Acute on Chronic? @ -Acute Uncomplicated (without systemic symptoms) or Complicated (systemic symptoms)? @ -Uncomplicated Side effects of treatment? @ -No Exacerbation, Progression, or Severe Exacerbation? @ -No Poses a threat to life or bodily function? How? (Chest pain, USA, DC, pneumonia, PE, COPD, DKA, ARF, appy, cholecystitis, CVA, Diverticulitis, Homicidal, Suicidal, threat to staff... and all critical care pts) @ -No Disposition Clinical Impression: Sinusitis Disposition: HOME SELF-CARE Condition: Good Instructions (If sedation given, give patient instructions): Sinusitis (ED) Additional Instructions: Follow-up with PCP. Report back to ER with any new or worsening symptoms. Prescriptions: Amoxic-Pot Clav 875-125Mg [Augmentin 875-125] 1 tab PO Q12HR 7 Days #14 tab Is patient prescribed a controlled substance at d/c from ED?: No Referrals: Oswaldo Liu DO [Primary Care Provider] - 1-2 days Time of Disposition: 18:20
[2023-09-09 18:56] VITALS: BP 106/80; PULSE 98; TEMP 98.7
== END 2023-09-09 18:42 | disposition home or self-care (01) ==
LOC: EC 17:46
DX: J32.9 Chronic sinusitis, unspecified (principal); J45.909 Unspecified asthma, uncomplicated; E07.9 Disorder of thyroid, unspecified; F17.200 Nicotine dependence, unspecified, uncomplicated; F15.90 Other stimulant use, unspecified, uncomplicated; Z86.59 Personal history of other mental and behavioral disorders; Z79.890 Hormone replacement therapy; Z79.899 Other long term (current) drug therapy; Z91.040 Latex allergy status
CPT/HCPCS: 99283